=== PATIENT | male | born 1995 | race Caucasian/White ===

== ENCOUNTER 2018-02-25 17:02 | Emergency (ER) | payer OTHER ==
[~2018-02-25] VITALS: Ht 167.6 cm; Wt 71.6 kg
[2018-02-25 17:29] VITALS: BP 152/82
[2018-02-25 18:21] LABS: MONOTEST NEGATIVE (Neg)
[2018-02-25] MEDS ORDERED: PHEN20SP2 PO (18:29)
[2018-02-25] MEDS ORDERED: GUAI600T45 PO (18:29)
== END 2018-02-25 18:36 | disposition home or self-care (01) ==
LOC: ER 17:03
DX: J20.9 Acute bronchitis, unspecified (principal); J02.8 Acute pharyngitis due to other specified organisms; B97.89 Other viral agents as the cause of diseases classified elsewhere; F17.200 Nicotine dependence, unspecified, uncomplicated
CPT/HCPCS: 36415; 86308; 87077; 87081; 87880; 99284